=== PATIENT | female | born 1975 | race Hispanic/Latino ===

== ENCOUNTER 2018-09-21 16:40 | Inpatient (IN) | payer MEDICAID, OTHER ==
[~2018-09-21] VITALS: Ht 167.6 cm; Wt 107.5 kg
[2018-09-21 10:35] VITALS: BP 133/69
[2018-09-21] MEDS ORDERED: KETOROLAC TROMETHAMINE 30MG/ML ONE (17:15)
[2018-09-21] MEDS ORDERED: ONDANSETRON HCL 4 MG/2 ML VIAL ONE (17:15)
[2018-09-21] MEDS ORDERED: SODIUM CHLORIDE 0.9% 1000ML 1,000 ML IV ONE (17:16)
[2018-09-21 17:33] LABS: BASOPHILS % (AUTO) 0.6 % (0.0-5.0); EOSINOPHILS % (AUTO) 2.9 % (0.0-8.0); HEMATOCRIT 40.6 % (36-48); LYMPHOCYTES % (AUTO) 28.1 % (21.0-51.0); MEAN CORPUSCULAR HEMOGLOBIN 30.2 pg (27.0-33.0); MEAN CORPUSCULAR HGB CONC 34.3 g/dL (32.0-36.0); MEAN CORPUSCULAR VOLUME 88.1 fL (79-99); MONOCYTES % (AUTO) 5.8 % (3.0-13.0); NEUTROPHILS % (AUTO) 62.6 % (40.0-77.0); PLATELET COUNT (AUTO) 210 K/uL (130-400); RED BLOOD CELL COUNT(AUTO) 4.62 MIL/uL (4.00-5.50); RED CELL DISTRIBUTION WIDTH 13.1 % (11.0-15.5); WHITE BLOOD COUNT (AUTO) 5.7 K/uL (4.8-10.8)
[2018-09-21 17:34] LABS: APPEARANCE,URINE Clear (CLEAR); BILIRUBIN,URINE Negative (NEGATIVE); COLOR,URINE Yellow (YELLOW); GLUCOSE, URINE (UA) Negative (NEGATIVE); KETONES,URINE Negative (NEGATIVE); LEUKOCYTE ESTERASE ,URINE Trace (NEGATIVE); NITRATE,URINE Negative (NEGATIVE); OCCULT BLOOD,URINE Large (NEGATIVE); PROTEIN,URINE Trace mg/dL (NEGATIVE)
[2018-09-21 17:42] LABS: AMPHET/METH SCREEN,URINE NEGATIVE (NEGATIVE); BARBITURATE SCREEN, URINE NEGATIVE (NEGATIVE); BENZODIAZEPINES SCREEN,URINE NEGATIVE (NEGATIVE); CANNABINOID SCREEN,URINE NEGATIVE (NEGATIVE); COCAINE SCREEN,URINE NEGATIVE (NEGATIVE); OPIATE SCREEN,URINE NEGATIVE (NEGATIVE); PHENCYCLIDINE SCREEN,URINE NEGATIVE (NEGATIVE)
[2018-09-21 17:43] LABS: INR 0.95 (0.85-1.15); PARTIAL THROMBOPLASTIN TIME 26.1 SEC (26.3-35.5)
[2018-09-21 17:49] LABS: BACTERIA,URINE Few /HPF (None Seen); RBC,URINE 0-1 /HPF (0-1); SQUAMOUS EPITHELIAL CELL,UR Few /HPF (0-2); WBC,URINE 0-1 /HPF (0-1)
[2018-09-21 17:52] LABS: HCG,QUAL RESULT NEGATIVE (NEGATIVE)
[2018-09-21] MEDS ORDERED: IOHEXOL-350 75 ML VIAL IV ONE (18:10)
[2018-09-21 18:19] LABS: POTASSIUM 3.7 mmol/L (3.5-5.1)
[2018-09-21 18:23] LABS: ALBUMIN 3.6 g/dL (3.5-5.0); BILIRUBIN,TOTAL 0.3 mg/dL (0.2-1.0); TOTAL PROTEIN, SERUM 7.2 g/dL (6.0-8.3)
[2018-09-21] MEDS ORDERED: LIDOCAINE HCL 2% VISCOUS 15 ML UDCUP ONE (18:51)
[2018-09-21] MEDS ORDERED: MAGNESIUM HYDROXIDE 30 ML/UDCUP ONE (18:51)
[2018-09-21] MEDS ORDERED: PROMETHAZINE HCL 25 MG/ML 1ML AMPULE IM PRN (21:00)
[2018-09-21] MEDS ORDERED: ONDANSETRON HCL 4 MG/2 ML VIAL IV PRN (21:00)
[2018-09-21] MEDS ORDERED: ACETAMINOPHEN 325 MG TAB PO PRN ×2 (21:00)
[2018-09-21] MEDS ORDERED: MORPHINE SULFATE 4 MG/1ML SYG IV PRN (21:00)
[2018-09-21] MEDS ORDERED: MORPHINE SULFATE 4 MG/1ML SYG ONE (21:11)
[2018-09-21] MEDS ORDERED: SODIUM CHLORIDE 0.9% 100 ML IV ONE (21:12)
--- NOTE | 2018-09-21 22:30 | NUR ---
Patient received from ED: Patient came in via wheelchair accompanied by ED Nurse with IV of NS infusing well gauge 20 on her left antecubital. Patient oriented to room, call light given, plan of care discussed with patient verbalizes understanding.
[2018-09-21 22:35] VITALS: BP 133/69
[2018-09-21 23:50] VITALS: BP 123/56
[2018-09-22] VITALS (19 sets, daily range): BP systolic 100–130; BP diastolic 52–73
[2018-09-22] MEDS: FAMOTIDINE/PF 20 MG/2 ML VIAL IV SCH ×3 (00:26→20:45)
[2018-09-22] MEDS: SODIUM CHLORIDE 0.9% 1000ML 1,000 ML IV SCH ×3 (01:02→16:54)
[2018-09-22] MEDS: MORPHINE SULFATE 2 MG/ML 1ML SYG IV PRN ×2 (08:02→20:53)
[2018-09-22] MEDS: CEFTRIAXONE SODIUM 1 GM IVP SCH (13:23)
--- NOTE | 2018-09-22 13:55 | NUR ---
CONSENT INSTRUCTIONS PROVIDED TO PATIENT IN [place] REGARDING ERCP, PT SIGNED UNDERSTANDING; CONSENT WAS THEN READ TO PATIENT, PT VERBALIZED UNDERSTANDING AND SIGNED UNDERSTANDING CONSENT
--- NOTE | 2018-09-22 18:18 | NUR ---
TO GI PT TRANSPORTED TO GI LAB FOR UPCOMING PROCEDURE, VIA BED, AAO X3, IV PATENT AND INFUSING NS, ACCOMPANIED BY ELOINA MUÑOZ AND SILVANO TECH
[2018-09-22] MEDS ORDERED: IOHEXOL-350 50ML VIAL IV ONE (18:53)
[2018-09-22] MEDS ORDERED: PROPOFOL 10 MG/ML 20ML VIAL IV ONE ×2 (18:59→19:17)
[2018-09-22] MEDS ORDERED: INDOMETHACIN 50 MG SUPP.RECT RC ONE (19:00)
[2018-09-22] MEDS ORDERED: SUCCINYLCHOLINE 200MG/10ML SYR ONE (19:16)
[2018-09-22] MEDS ORDERED: LIDOCAINE PF 2% 5ML ABBOJECT ONE (19:16)
[2018-09-22] MEDS ORDERED: MIDAZOLAM HCL 1 MG/ML 2ML VIAL ONE (19:17)
[2018-09-22] MEDS ORDERED: ONDANSETRON HCL 4 MG/2 ML VIAL ONE (19:17)
[2018-09-22] MEDS ORDERED: ROCURONIUM 10MG/1ML SYR 10 MG/ML ML ONE (19:17)
[2018-09-22] MEDS ORDERED: DEXAMETHASONE SOD PHOSPHATE 10MG/ML 1ML VIAL ONE (19:17)
[2018-09-22] MEDS ORDERED: GLYCOPYRROLATE 1 MG/5 ML SYRINGE ONE (19:17)
[2018-09-22] MEDS ORDERED: NEOSTIGMINE 5MG/5ML SYR IV ONE (19:17)
[2018-09-22] MEDS ORDERED: FENTANYL CITRATE PF 50 MCG/1 ML 2ML VIAL ONE (19:18)
[2018-09-22] MEDS ORDERED: LIDOCAINE HCL 2% 20ML ONE (19:20)
[2018-09-22] MEDS ORDERED: LIDOCAINE HCL 1% 20 ML VIAL ONE (19:20)
[2018-09-23] MEDS: MORPHINE SULFATE 2 MG/ML 1ML SYG IV PRN (01:12)
[2018-09-23 03:42] VITALS: BP 96/55
[2018-09-23] MEDS: SODIUM CHLORIDE 0.9% 1000ML 1,000 ML IV SCH ×2 (04:18→13:38)
[2018-09-23 06:40] LABS: HEMATOCRIT 35.2 % (36-48); MEAN CORPUSCULAR HEMOGLOBIN 30.3 pg (27.0-33.0); MEAN CORPUSCULAR HGB CONC 33.7 g/dL (32.0-36.0); PLATELET COUNT (AUTO) 151 K/uL (130-400); RED BLOOD CELL COUNT(AUTO) 3.92 MIL/uL (4.00-5.50); WHITE BLOOD COUNT (AUTO) 5.7 K/uL (4.8-10.8)
[2018-09-23 07:04] LABS: ALBUMIN 2.8 g/dL (3.5-5.0); BILIRUBIN,TOTAL 0.3 mg/dL (0.2-1.0); CREATININE 0.7 mg/dL (0.5-1.5); POTASSIUM 4.1 mmol/L (3.5-5.1); TOTAL PROTEIN, SERUM 5.8 g/dL (6.0-8.3)
[2018-09-23 07:10] VITALS: BP 119/64
[2018-09-23] MEDS: FAMOTIDINE/PF 20 MG/2 ML VIAL IV SCH (08:13)
[2018-09-23 11:29] VITALS: BP 117/69
[2018-09-23] MEDS: CEFTRIAXONE SODIUM 1 GM IVP SCH (13:37)
[2018-09-23 15:06] VITALS: BP 115/66
--- NOTE | 2018-09-23 19:35 | NUR ---
DISCHARGE INSTRUCTIONS INSTRUCTIONS READ TO PT, TEACH BACK DONE, PT VERBALIZED AND SIGNED UNDERSTANDING
--- NOTE | 2018-09-23 19:45 | NUR ---
PATIENT WAS TAKEN VIA W/C TO [facility] AND DISCHARGED TO HOME. PATIENT STABLE AND DENIES PAIN.
== END 2018-09-23 19:45 | disposition home or self-care (01) | DRG 446 ==
LOC: EDH 16:40 → EDHIP 16:41 → WSH 22:04
PROVIDERS: ADMIT Internal Medicine; ATTEND Internal Medicine
PROC: 0FC98ZZ Extirpation of Matter from Common Bile Duct, Via Natural or Artificial Opening Endoscopic (ICD-10-PCS; principal; 2018-09-22)
DX: K80.51 Calculus of bile duct without cholangitis or cholecystitis with obstruction (principal); K83.8 Other specified diseases of biliary tract; K76.0 Fatty (change of) liver, not elsewhere classified; Z90.49 Acquired absence of other specified parts of digestive tract; Z83.3 Family history of diabetes mellitus
CPT/HCPCS: 36415; 43262; 43264; 71045; 74177; 74330; 76705; 80053; 80305; 81001; 81025; 83690; 84484; 85025; 85027; 85610; 85730; 87040; 93005; C1769; C1773; G0378; J0330; J0696; J1100; J1885; J2001; J2250; J2270; J2405; J2704; J2710; J3010; J3490; J7030; Q9967

== ENCOUNTER 2018-12-18 16:02 | Emergency (ER) | payer MEDICAID, OTHER ==
[2018-12-18 16:31] LABS: APPEARANCE,URINE TURBID (CLEAR); BILIRUBIN,URINE NEGATIVE (NEGATIVE); COLOR,URINE RED (YELLOW); GLUCOSE, URINE (UA) NEGATIVE (NEGATIVE); HCG,QUAL RESULT NEGATIVE (NEGATIVE); KETONES,URINE NEGATIVE (NEGATIVE); LEUKOCYTE ESTERASE ,URINE SMALL (NEGATIVE); NITRATE,URINE NEGATIVE (NEGATIVE); OCCULT BLOOD,URINE LARGE (NEGATIVE); PH,URINE 6.5 (5.0-8.0); PROTEIN,URINE 100 mg/dL (NEGATIVE)
[2018-12-18 16:33] LABS: RBC,URINE TNTC /HPF (0-1)
[2018-12-18 16:34] LABS: BACTERIA,URINE Rare /HPF (None Seen); SQUAMOUS EPITHELIAL CELL,UR Rare /HPF (0-2)
[2018-12-18] MEDS ORDERED: CEFTRIAXONE SODIUM 1 GM ONE (16:51)
[2018-12-18] MEDS ORDERED: LIDOCAINE HCL-MPF 1% 2ML VIAL ONE (16:51)
[2018-12-18] MEDS ORDERED: KETOROLAC TROMETHAMINE 60 MG/2 ML VIAL ONE (16:51)
[2018-12-18] MEDS ORDERED: PHENAZOPYRIDINE HCL 200 MG TABLET ONE ×2 (16:52→16:57)
== END 2018-12-18 17:22 | disposition home or self-care (01) ==
LOC: EDH 16:02
DX: N30.01 Acute cystitis with hematuria (principal); Z90.49 Acquired absence of other specified parts of digestive tract; Z87.891 Personal history of nicotine dependence
CPT/HCPCS: 81001; 81025; 87077; 87088; 87186; 96372 ×2; 99284; J0696; J1885; J3490

== ENCOUNTER 2020-04-30 06:48 | Inpatient (IN) | payer MEDICAID, OTHER ==
[~2020-04-30] VITALS: Ht 167.6 cm; Wt 104.6 kg
[2020-04-30 07:30] LABS: BASOPHILS % (AUTO) 0.4 % (0.0-5.0); EOSINOPHILS % (AUTO) 1.3 % (0.0-8.0); LYMPHOCYTES % (AUTO) 30.7 % (21.0-51.0); MEAN CORPUSCULAR HEMOGLOBIN 29.7 pg (27.0-33.0); MEAN CORPUSCULAR HGB CONC 33.8 g/dL (32.0-36.0); MEAN CORPUSCULAR VOLUME 87.6 fL (79-99); MONOCYTES % (AUTO) 5.8 % (3.0-13.0); NEUTROPHILS % (AUTO) 61.4 % (40.0-77.0); PLATELET COUNT (AUTO) 221 K/uL (130-400); RED BLOOD CELL COUNT(AUTO) 4.45 MIL/uL (4.00-5.50); RED CELL DISTRIBUTION WIDTH 12.8 % (11.0-15.5); WHITE BLOOD COUNT (AUTO) 7.9 K/uL (4.8-10.8)
[2020-04-30] MEDS ORDERED: FAMOTIDINE 20MG VIAL IV ONE (07:30)
[2020-04-30 07:44] LABS: ALBUMIN 3.5 g/dL (3.5-5.0); BILIRUBIN,TOTAL 0.3 mg/dL (0.2-1.0); CREATININE 0.9 mg/dL (0.5-1.5); POTASSIUM 3.7 mmol/L (3.5-5.1); TOTAL PROTEIN, SERUM 7.1 g/dL (6.0-8.3)
[2020-04-30 07:58] LABS: APPEARANCE,URINE Clear (CLEAR); BILIRUBIN,URINE Negative (NEGATIVE); COLOR,URINE Yellow (YELLOW); GLUCOSE, URINE (UA) Negative (NEGATIVE); KETONES,URINE Trace mg/dL (NEGATIVE); LEUKOCYTE ESTERASE ,URINE Trace (NEGATIVE); NITRATE,URINE Negative (NEGATIVE); OCCULT BLOOD,URINE Trace (NEGATIVE); PROTEIN,URINE Negative (NEGATIVE); UROBILINOGEN,URINE 0.2 mg/dL (0.2-1.0)
[2020-04-30 08:28] LABS: BACTERIA,URINE Few /HPF (None Seen); RBC,URINE 0-1 /HPF (0-1); WBC,URINE 0-1 /HPF (0-1)
[2020-04-30] MEDS ORDERED: KETOROLAC 30MG VIAL (30MG/ML) ONE (11:10)
[2020-04-30] MEDS ORDERED: MAGNESIUM CITRATE 296 ML SOLUTION ONE (13:16)
[2020-04-30] MEDS ORDERED: 0.9%NACL 1000ML 1,000 ML IV ONE ×2 (14:00→14:09)
[2020-04-30] MEDS ORDERED: GADODIAMIDE 10 MMOL/20 ML VIAL IV ONE (14:47)
[2020-04-30 15:51] LABS: AMPHET/METH SCREEN,URINE NEGATIVE (NEGATIVE); BARBITURATE SCREEN, URINE NEGATIVE (NEGATIVE); BENZODIAZEPINES SCREEN,URINE NEGATIVE (NEGATIVE); CANNABINOID SCREEN,URINE NEGATIVE (NEGATIVE); COCAINE SCREEN,URINE NEGATIVE (NEGATIVE); OPIATE SCREEN,URINE NEGATIVE (NEGATIVE); PHENCYCLIDINE SCREEN,URINE NEGATIVE (NEGATIVE)
[2020-04-30] MEDS ORDERED: MORPHINE 2 MG SYG ONE (21:33)
[2020-05-01] MEDS ORDERED: MORPHINE 4 MG SYG ONE (03:24)
[2020-05-01] MEDS: CEFTRIAXONE 1G VIAL IVP SCH (04:15)
[2020-05-01 07:37] LABS: BASOPHILS % (AUTO) 0.4 % (0.0-5.0); HEMATOCRIT 40.4 % (36-48); LYMPHOCYTES % (AUTO) 40.3 % (21.0-51.0); MEAN CORPUSCULAR HEMOGLOBIN 28.5 pg (27.0-33.0); MEAN CORPUSCULAR HGB CONC 31.9 g/dL (32.0-36.0); MEAN CORPUSCULAR VOLUME 89.2 fL (79-99); MONOCYTES % (AUTO) 5.4 % (3.0-13.0); NEUTROPHILS % (AUTO) 51.8 % (40.0-77.0); PLATELET COUNT (AUTO) 228 K/uL (130-400); RED BLOOD CELL COUNT(AUTO) 4.53 MIL/uL (4.00-5.50); RED CELL DISTRIBUTION WIDTH 12.8 % (11.0-15.5); WHITE BLOOD COUNT (AUTO) 6.9 K/uL (4.8-10.8)
[2020-05-01 08:01] LABS: ALBUMIN 3.3 g/dL (3.5-5.0); BILIRUBIN,TOTAL 0.4 mg/dL (0.2-1.0); CREATININE 0.9 mg/dL (0.5-1.5); POTASSIUM 3.9 mmol/L (3.5-5.1); TOTAL PROTEIN, SERUM 7.1 g/dL (6.0-8.3)
[2020-05-01] MEDS ORDERED: METRONIDAZOLE 500 MG TABLET PO SCH (08:28)
[2020-05-01 08:31] VITALS: BP 117/85
[2020-05-01 11:42] VITALS: BP 119/55
[2020-05-01] MEDS: MORPHINE 2 MG SYG IVP PRN ×3 (12:02→22:30)
[2020-05-01] MEDS: METRONIDAZOLE 500 MG TABLET PO SCH ×2 (14:00→22:00)
[2020-05-01 18:32] VITALS: BP 105/63
[2020-05-01] MEDS ORDERED: POLYETHYLENE GLYCOL 3350 17 GM POWD.PACK PO SCH (20:15)
[2020-05-01 21:40] VITALS: BP 112/42
[2020-05-02 01:01] VITALS: BP 105/50
[2020-05-02] MEDS: CEFTRIAXONE 1G VIAL IVP SCH (03:37)
[2020-05-02] MEDS: MORPHINE 2 MG SYG IVP PRN ×2 (03:43→09:30)
[2020-05-02] MEDS ORDERED: ONDANSETRON 4MG INJ IVP PRN (04:15)
[2020-05-02] MEDS ORDERED: ONDANSETRON 4MG INJ ONE (04:16)
[2020-05-02 05:25] LABS: BASOPHILS % (AUTO) 0.4 % (0.0-5.0); HEMATOCRIT 40.1 % (36-48); LYMPHOCYTES % (AUTO) 35.5 % (21.0-51.0); MEAN CORPUSCULAR HEMOGLOBIN 28.4 pg (27.0-33.0); MEAN CORPUSCULAR HGB CONC 32.4 g/dL (32.0-36.0); MEAN CORPUSCULAR VOLUME 87.7 fL (79-99); MONOCYTES % (AUTO) 6.2 % (3.0-13.0); NEUTROPHILS % (AUTO) 55.8 % (40.0-77.0); PLATELET COUNT (AUTO) 226 K/uL (130-400); RED BLOOD CELL COUNT(AUTO) 4.57 MIL/uL (4.00-5.50); RED CELL DISTRIBUTION WIDTH 12.4 % (11.0-15.5); WHITE BLOOD COUNT (AUTO) 7.9 K/uL (4.8-10.8)
[2020-05-02 05:41] LABS: CREATININE 0.9 mg/dL (0.5-1.5); POTASSIUM 3.8 mmol/L (3.5-5.1)
[2020-05-02 05:42] VITALS: BP 123/56
[2020-05-02] MEDS: METRONIDAZOLE 500 MG TABLET PO SCH ×3 (06:25→21:15)
[2020-05-02 08:18] VITALS: BP 121/58
[2020-05-02 12:03] VITALS: BP 114/62
[2020-05-02] MEDS: PANTOPRAZOLE 40 MG TAB DR PO SCH (15:37)
[2020-05-02] MEDS: KETOROLAC 30MG VIAL (30MG/ML) IV PRN (16:16)
[2020-05-02 16:39] VITALS: BP 107/57
[2020-05-02 20:00] VITALS: BP 101/53
[2020-05-03] VITALS (14 sets, daily range): BP systolic 92–108; BP diastolic 40–74
[2020-05-03] MEDS: KETOROLAC 30MG VIAL (30MG/ML) IV PRN (00:05)
[2020-05-03] MEDS: CEFTRIAXONE 1G VIAL IVP SCH (03:22)
[2020-05-03] MEDS: METRONIDAZOLE 500 MG TABLET PO SCH ×3 (05:11→20:42)
[2020-05-03] MEDS: MORPHINE 2 MG SYG IVP PRN ×2 (05:12→20:50)
[2020-05-03 05:33] LABS: BASOPHILS % (AUTO) 0.3 % (0.0-5.0); EOSINOPHILS % (AUTO) 1.7 % (0.0-8.0); HEMATOCRIT 37.8 % (36-48); LYMPHOCYTES % (AUTO) 34.6 % (21.0-51.0); MEAN CORPUSCULAR HGB CONC 33.3 g/dL (32.0-36.0); MEAN CORPUSCULAR VOLUME 86.9 fL (79-99); MONOCYTES % (AUTO) 5.8 % (3.0-13.0); NEUTROPHILS % (AUTO) 57.5 % (40.0-77.0); PLATELET COUNT (AUTO) 216 K/uL (130-400); RED BLOOD CELL COUNT(AUTO) 4.35 MIL/uL (4.00-5.50); RED CELL DISTRIBUTION WIDTH 12.3 % (11.0-15.5); WHITE BLOOD COUNT (AUTO) 7.3 K/uL (4.8-10.8)
[2020-05-03 05:46] LABS: ALBUMIN 3.3 g/dL (3.5-5.0); BILIRUBIN,TOTAL 0.3 mg/dL (0.2-1.0); POTASSIUM 3.8 mmol/L (3.5-5.1); TOTAL PROTEIN, SERUM 7.1 g/dL (6.0-8.3)
[2020-05-03] MEDS: PANTOPRAZOLE 40 MG TAB DR PO SCH (06:36)
[2020-05-03] MEDS ORDERED: LIDOCAINE HCL 1% 20 ML VIAL ONE (12:10)
[2020-05-03] MEDS ORDERED: PROPOFOL 10 MG/ML 20ML VIAL IV ONE ×2 (12:10→12:19)
[2020-05-03] MEDS ORDERED: GLYCOPYRROLATE 1 MG/5 ML SYRINGE ONE (12:14)
[2020-05-04 04:00] VITALS: BP 107/56
[2020-05-04] MEDS: CEFTRIAXONE 1G VIAL IVP SCH (04:05)
[2020-05-04] MEDS: METRONIDAZOLE 500 MG TABLET PO SCH (05:17)
[2020-05-04] MEDS: PANTOPRAZOLE 40 MG TAB DR PO SCH ×2 (05:18→08:36)
[2020-05-04] MEDS: KETOROLAC 30MG VIAL (30MG/ML) IV PRN (05:30)
[2020-05-04 08:00] VITALS: BP 92/55
[2020-05-04] MEDS ORDERED: PANT40TA PO (08:07)
[2020-05-04 12:00] VITALS: BP 101/60
== END 2020-05-04 13:15 | disposition home or self-care (01) | DRG 392 ==
LOC: EDH 06:48 → OBSVTOIN 06:49 → EDHIP 06:49 → 3DH 05-01 04:09 → EDHIP 05-01 04:16 → 3DH 05-01 08:13
PROVIDERS: ADMIT Internal Medicine; ATTEND Internal Medicine
PROC: 0DB98ZX Excision of Duodenum, Via Natural or Artificial Opening Endoscopic, Diagnostic (ICD-10-PCS; principal; 2020-05-03)
PROC: 0DB68ZX Excision of Stomach, Via Natural or Artificial Opening Endoscopic, Diagnostic (ICD-10-PCS; 2020-05-03)
PROC: 0DB58ZX Excision of Esophagus, Via Natural or Artificial Opening Endoscopic, Diagnostic (ICD-10-PCS; 2020-05-03)
DX: K29.00 Acute gastritis without bleeding (principal); E66.9 Obesity, unspecified; Z20.822 Contact with and (suspected) exposure to COVID-19; K76.0 Fatty (change of) liver, not elsewhere classified; N85.2 Hypertrophy of uterus; K21.00 Gastro-esophageal reflux disease with esophagitis, without bleeding; Z90.49 Acquired absence of other specified parts of digestive tract; Z68.37 Body mass index [BMI] 37.0-37.9, adult
CPT/HCPCS: 36415; 43239; 74018; 74176; 74183; 80048; 80053; 80305; 81001; 81025; 83605; 83690; 85025; 86677; 87426; 88305; 88342; A4606; A9579; G0378; J0696; J1885; J2270; J2405; J2704; J3490; J7030; U0003

== ENCOUNTER 2020-11-14 12:44 | Emergency (ER) | payer MEDICAID, OTHER ==
[~2020-11-14] VITALS: Ht 167.6 cm; Wt 90.7 kg
[~2020-11-14 12:44] MED LIST: PANT40TA PO
[2020-11-14] MEDS: ACETAMINOPHEN 500 MG TABLET PO STA ×2 (13:18→13:35)
[2020-11-14] MEDS ORDERED: ALBUTEROL INHALER 90MCG/INH IH STA (13:18)
[2020-11-14] MEDS: ONDANSETRON 4MG TABLET PO ONE ×2 (13:30→13:35)
[2020-11-14] MEDS ORDERED: KETOROLAC 15MG/ML VIAL (15MG/ML) IV STA (13:48)
[2020-11-14] MEDS ORDERED: 0.9%NACL 1000ML 1,000 ML IV STA (13:48)
[2020-11-14 14:00] LABS: BASOPHILS % (AUTO) 0.2 % (0.0-5.0); HEMATOCRIT 40.1 % (36-48); MEAN CORPUSCULAR HEMOGLOBIN 29.3 pg (27.0-33.0); MEAN CORPUSCULAR HGB CONC 33.4 g/dL (32.0-36.0); MEAN CORPUSCULAR VOLUME 87.7 fL (79-99); MONOCYTES % (AUTO) 3.1 % (3.0-13.0); NEUTROPHILS % (AUTO) 70.3 % (40.0-77.0); PLATELET COUNT (AUTO) 147 K/uL (130-400); RED BLOOD CELL COUNT(AUTO) 4.57 MIL/uL (4.00-5.50); WHITE BLOOD COUNT (AUTO) 5.6 K/uL (4.8-10.8)
[2020-11-14] MEDS ORDERED: ONDANSETRON 4MG INJ IVP ONE (14:00)
[2020-11-14 14:11] LABS: APPEARANCE,URINE Cloudy (CLEAR); BILIRUBIN,URINE Negative (NEGATIVE); COLOR,URINE Dark Yellow (YELLOW); GLUCOSE, URINE (UA) Negative (NEGATIVE); KETONES,URINE Trace mg/dL (NEGATIVE); LEUKOCYTE ESTERASE ,URINE Negative (NEGATIVE); NITRATE,URINE Negative (NEGATIVE); OCCULT BLOOD,URINE Trace (NEGATIVE); PH,URINE 5.5 (5.0-8.0); PROTEIN,URINE POS 2+ mg/dL (NEGATIVE)
[2020-11-14 14:13] LABS: ALBUMIN 3.1 g/dL (3.5-5.0); BILIRUBIN,TOTAL 0.4 mg/dL (0.2-1.0); POTASSIUM 3.8 mmol/L (3.5-5.1); TOTAL PROTEIN, SERUM 7.7 g/dL (6.0-8.3)
[2020-11-14 14:18] LABS: BACTERIA,URINE Rare /HPF (None Seen); RBC,URINE 0-1 /HPF (0-1); SQUAMOUS EPITHELIAL CELL,UR Rare /HPF (0-2); WBC,URINE 0-1 /HPF (0-1)
[2020-11-14] MEDS ORDERED: IBUP-2088 PO (14:50)
[2020-11-14] MEDS ORDERED: ASCO500T20 PO (14:50)
[2020-11-14] MEDS ORDERED: AZIT500T2 PO (14:50)
[2020-11-14] MEDS ORDERED: CHOL500050 PO (14:50)
[2020-11-14] MEDS ORDERED: ONDA4TAB4 PO (14:50)
[2020-11-14] MEDS ORDERED: ALBU8.5H8 IH (14:50)
[2020-11-14] MEDS ORDERED: PRED20TA3 PO (14:52)
[2020-11-14] MEDS ORDERED: CEFTRIAXONE 1G VIAL IVP STA (14:58)
[2020-11-14 15:42] VITALS: BP 101/55
== END 2020-11-14 16:43 | disposition home or self-care (01) ==
LOC: EDH 12:44
DX: U07.1 COVID-19 (principal); J12.82 Pneumonia due to coronavirus disease 2019; R11.2 Nausea with vomiting, unspecified; M54.9 Dorsalgia, unspecified; E66.9 Obesity, unspecified; Z79.1 Long term (current) use of non-steroidal anti-inflammatories (NSAID); Z79.52 Long term (current) use of systemic steroids; Z79.899 Other long term (current) drug therapy; Z90.49 Acquired absence of other specified parts of digestive tract; Z68.32 Body mass index [BMI] 32.0-32.9, adult
CPT/HCPCS: 36415; 71045; 80053; 81001; 85025; 87635; 96361; 96374; 96375; 99284; C9803; J0696; J1885; J2405; Q0162

== ENCOUNTER 2023-02-15 08:53 | Day surgery (SDC) | payer OTHER ==
[2023-02-12 12:01] VITALS: BP 165/73; PULSE 72; RESP 17
[2023-02-12 12:20] LABS: BASOPHILS # (AUTO) 0.03 K/uL (0.00-0.20); BASOPHILS % (AUTO) 0.5 % (0.0-5.0); EOSINOPHILS % (AUTO) 1.7 % (0.0-8.0); HEMATOCRIT 41.7 % (36-48); IMMATURE GRANULOCYTE ABSOLUTE 0.01 K/uL (0-1); LYMPHOCYTES # (AUTO) 2.6 K/uL (1.0-4.8); LYMPHOCYTES % (AUTO) 43.5 % (21.0-51.0); MEAN CORPUSCULAR HEMOGLOBIN 29.6 pg (27.0-33.0); MEAN CORPUSCULAR HGB CONC 33.3 g/dL (32.0-36.0); MEAN CORPUSCULAR VOLUME 88.7 fL (79-99); MONOCYTES # (AUTO) 0.4 K/uL (0.1-1.0); MONOCYTES % (AUTO) 5.8 % (3.0-13.0); NEUTROPHILS # (AUTO) 2.9 K/uL (1.8-7.7); NEUTROPHILS % (AUTO) 48.3 % (40.0-77.0); PLATELET COUNT (AUTO) 245 K/uL (130-400); RED CELL DISTRIBUTION WIDTH 12.5 % (11.0-15.5)
[2023-02-12 12:47] LABS: CREATININE 0.7 mg/dL (0.5-1.5); POTASSIUM 4.1 mmol/L (3.5-5.1)
[2023-02-15] VITALS (20 sets, daily range): BP systolic 112–159; BP diastolic 49–74; PULSE 76–93; RESP 11–20
[~2023-02-15] VITALS: Ht 167.6 cm; Wt 112.2 kg
[2023-02-15] MEDS ORDERED: LACTATED RINGERS 1000ML 1,000 ML IV ONE (09:09)
[2023-02-15] MEDS ORDERED: GLYCOPYRROLATE 1 MG/5 ML SYRINGE ONE (09:57)
[2023-02-15] MEDS ORDERED: DEXAMETHASONE SOD PHOSPHATE 10MG/ML 1ML VIAL ONE (09:57)
[2023-02-15] MEDS ORDERED: SUCCINYLCHOLINE 200MG/10ML SYR ONE (09:57)
[2023-02-15] MEDS ORDERED: NEOSTIGMINE 5MG/5ML SYR IV ONE (09:57)
[2023-02-15] MEDS ORDERED: LIDOCAINE PF 100MG/5ML (2%) SYRINGE 5ML ONE (09:57)
[2023-02-15] MEDS ORDERED: ONDANSETRON 4MG INJ ONE ×2 (09:57→13:19)
[2023-02-15] MEDS ORDERED: PROPOFOL 10 MG/ML 20ML VIAL IV ONE (09:57)
[2023-02-15] MEDS ORDERED: FENTANYL CITRATE PF 50 MCG/1 ML 2ML VIAL ONE ×3 (09:58→11:51)
[2023-02-15] MEDS ORDERED: ROCURONIUM 10MG/1ML SYR 10 MG/ML ML ONE (09:58)
[2023-02-15] MEDS ORDERED: MIDAZOLAM HCL 1 MG/ML 2ML VIAL ONE (09:58)
[2023-02-15] MEDS ORDERED: BUPIVACAINE/PF 0.5% 30ML VIAL ONE (10:36)
[2023-02-15] MEDS ORDERED: BUPIVACAINE/PF 0.5% 10ML VIAL ONE (10:37)
[2023-02-15] MEDS: CEFAZOLIN SODIUM 2 GM VIAL ONE ×2 (10:47→11:14)
[2023-02-15] MEDS ORDERED: MEPERIDINE-PF 25 MG/ML SYG ONE ×3 (12:51→14:02)
[2023-02-15] MEDS ORDERED: KETOROLAC 30MG VIAL (30MG/ML) ONE (13:19)
== END 2023-02-15 15:10 | disposition home or self-care (01) ==
LOC: DAH 08:53
PROVIDERS: ATTEND Surgery
DX: K43.2 Incisional hernia without obstruction or gangrene (principal); E66.9 Obesity, unspecified; K42.9 Umbilical hernia without obstruction or gangrene; Z79.899 Other long term (current) drug therapy; J45.909 Unspecified asthma, uncomplicated; Z90.49 Acquired absence of other specified parts of digestive tract; Z98.890 Other specified postprocedural states; Z82.49 Family history of ischemic heart disease and other diseases of the circulatory system; Z83.3 Family history of diabetes mellitus; Z68.39 Body mass index [BMI] 39.0-39.9, adult
CPT/HCPCS: 49593; S2900; 36415; 80048; 84703; 85025; C1760; J0330; J1100; J1885; J2001; J2175; J2250; J2405; J2704; J2710; J3010; J3490; J7030; J7120; A4215; A4221; A4222; A4223; A4452; A4600; A4649; A4663; A6260; C1781; J0665; J0690